=== PATIENT | male | born 1995 | race Caucasian/White ===

== ENCOUNTER 2019-07-07 01:15 | Emergency (ER) | payer SELFPAY ==
[~2019-07-07] VITALS: Ht 175.3 cm; Wt 124.7 kg
[2019-07-07] MEDS ORDERED: TETRACAINE 0.5% OPHTH SOLN 4 ML BTL (SINGLE DOSE ONLY) ONE (01:17)
[2019-07-07] MEDS ORDERED: oxyCODONE/APAP 5/325MG (PERCOCET 5) TABLET ONE (01:30)
[2019-07-07] MEDS ORDERED: oxyCODONE/APAP 10/325MG (PERCOCET 10) TABLET PO ONE (01:30)
[2019-07-07] MEDS ORDERED: TETRACAINE 0.5% OPHTH SOLN 4 ML BTL (SINGLE DOSE ONLY) OP ONE (01:30)
[2019-07-07] MEDS ORDERED: OXYC1TAB12 PO (01:34)
[2019-07-07] MEDS ORDERED: SULF5DRO OP (01:34)
--- NOTE | 2019-07-07 01:43 | ED EENT ---
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 Patient denies foreign body sensation in her after welding. Reports bilateral eye pain, redness wandering persistent pain starting shortly after completing welding. I pain is gradually worse throughout the evening. Reports blurred vision secondary to tearing and pain. Patient does not her contact lenses are in classes. Patient drove himself to the ED. No other acute symptoms or complaints Timing/Duration: gradual Severity: severe Location: eye (R), eye (L) Prearrival Treatment: no prearrival treatment Modifying Factors: Improves With Other Associated Symptoms: denies symptoms Allergies and Home Medications Allergies Coded Allergies: No Known Drug Allergies (Unverified , 07/07/19) Home Medications Oxycodone HCl/Acetaminophen 1 Each Tablet, 1 TAB PO Q8H PRN for PAIN-MODERATE Prescribed by: BUDDY HALE on 07/07/19133 Sulfacetamide Sodium 5 Ml Drops, 5 ML OP Q4H Prescribed by: BUDDY HALE on 07/07/19133 Patient Home Medication List Home Medication List Reviewed: Yes Review of Systems Review of Systems Constitutional: no symptoms reported Eyes: Blurred Vision, Decreased Acuity; Denies Foreign Body Sensation; Inflammation, Pain, Photophobia, Vision Changes Ears: No Symptoms Reported Nose: no symptoms reported Mouth: no symptoms reported Past Slpkkmr-Bwfnhd-Bvrkzq Hx Patient Social History Alcohol Use: Denies Use Recreational Drug Use: No Smoking Status: Never a Smoker 2nd Hand Smoke Exposure: No Recent Foreign Travel: No Contact w/Someone Who Travel: No Recent Infectious Disease Expo: No Recent Hopitalizations: No Past Medical History Surgeries: No Respiratory: No Cardiac: No Neurological: No Genitourinary: No Gastrointestinal: No Musculoskeletal: No Endocrine: No HEENT: No Cancer: No Psychosocial: No Integumentary: No Blood Disorders: No Visual Acuity : Eye Location: Bilaterally Vision Acuity Degree: visual acuity noted Physical Exam Height, Weight, BMI Height: 5'9.00" Weight: 275lbs. oz. 124.770290ct; BMI Method:Stated General Appearance: moderate distress Eyes: bilateral eye PERRL, bilateral eye EOMI, bilateral eye conjunctival inflammation Nose: normal inspection Progress/Results/Core Measures Results/Orders My Orders Orders - BUDDY HALE DO Tetracaine 0.5% Ophth Lorna Sdv (Tetracai (07/07/19 01:17) Tetracaine 0.5% Ophth Lorna Sdv (Tetracai (07/07/19 01:30) Oxycodone/Acet 10/325mg Tablet (Percocet (07/07/19 01:30) Blood Pressure Mean: 111 Departure Communication (Admissions) Exam consistent with photokeratitis from welding. Pain resolved with eyedrops visual acuity intact. Pain medication and topical antibiotics prescribed. Patient instructed to follow up with eye doctor if pain persists greater than 24 hours. Courtesy work note provided Impression Primary Impression: Keratoconjunctivitis of both eyes Disposition: 01 HOME, SELF-CARE Condition: Improved Departure-Patient Inst. Decision time for Depature: 01:43 Patient Instructions: Photokeratitis ([facility]) Scripts Oxycodone HCl/Acetaminophen (Percocet 10-325 mg Tablet) 1 Each Tablet 1 TAB PO Q8H PRN for PAIN-MODERATE MDD 3 TABS for 7 Days, #12 TAB Prov: BUDDY HALE DO 07/07/19 Sulfacetamide Sodium (Bleph-10) 5 Ml Drops 5 ML OP Q4H, #3 DROPS Prov: BUDDY HALE DO 07/07/19 BUDDY HALE DO Jul 07, 2019 01:43
[2019-07-07] MEDS ORDERED: oxyCODONE/APAP 5/325MG (PERCOCET 5) TABLET PO ONE (01:45)
[2019-07-07 01:47] VITALS: BP 155/90
== END 2019-07-07 01:47 | disposition home or self-care (01) ==
LOC: EDUNIT# 01:15 → ER FS 01:17
DX: H16.203 Unspecified keratoconjunctivitis, bilateral (principal)
CPT/HCPCS: 99283

== ENCOUNTER 2021-09-05 07:31 | Emergency (ER) | payer SELFPAY ==
[~2021-09-05] VITALS: Ht 177.8 cm; Wt 108.0 kg
[~2021-09-05 07:31] MED LIST: OXYC1TAB12 PO; SULF5DRO OP
--- OUTSIDE RECORDS SUMMARY | 2021-09-05 07:35 | XMS REPORT | Clinical Summary ---
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 If you d o not see the information that you expected, contact Release of Information in [facility] Information Management department at [phone] for further assistan ce in locating additional records.[facility] Allergies No Known Active Allergies Medications End Date Status Medication Sig Dispensed Refills Start Date Active predniSONE (DELTASONE) 10 Take 60mg 21 Tab 0 mg tablet daily x 1 5 days, then 50mg daily x 1 days, then 40mg daily x 1 days, then 30mg daily x 1 days, then 20mg daily x 1 days, then 10mg daily x 1 days, then stop Active oxyCODONE (ROXICODONE) 5 Take 1-2 Tabs 30 Tab 0 mg tablet by mouth 5 every 4 hours as needed for Pain Earliest Fill Date: 07/28/15 Active Lactobacillus rhamnosus Take 1 Cap by 90 Cap 3 GG (CULTURELLE) 15 mouth twice 5 billion cell cpSP daily with meals. 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 Family History Medical History Relation Name Comments Other Father Relation Name Status Comments Father Alive Mother Alive Social History Date Tobacco Use Types Packs/Day Years Used Never Smoker Smokeless Tobacco: Chew Current User Tobacco Cessation: Ready to Quit: No Comments Alcohol Use Standard Drinks/Week No 0 (1 standard drink = 0.6 o z pure alcohol) Sex Assigned at Date Recorded Not on file Last Filed Vital Signs Reading Time Taken Comments Vital Sign 108/60 07/28/2015 6:11 AM CDT Blood Pressure 64 07/28/2015 6:11 AM CDT Pulse 36.5 C (97.7 F) 07/28/2015 6:11 AM CDT Temperature - - Respiratory Rate 99% 07/28/2015 6:11 AM CDT Oxygen Saturation - - Inhaled Oxygen Concentration 125.6 kg (276 lb 14.4 oz) 07/26/2015 2:20 PM CDT Weight 177.8 cm (5' 10") 07/26/2015 2:20 PM CDT Height 39.73 07/26/2015 2:20 PM CDT Body Mass Index Plan of Treatment Health Maintenance Due Date Last Done Comments HIV SCREENING 2008 DTAP/TDAP VACCINES (1 - 2011 Tdap) HEPATITIS C SCREENING 2011 PHYSICAL (COMPREHENSIVE) 2011 EXAM INFLUENZA VACCINE 06/17/2021 Results Not on filefrom Last 3 Months 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
[2021-09-05 07:42] VITALS: BP 140/88
[2021-09-05 08:03] LABS: BILIRUBIN,URINE NEGATIVE (NEGATIVE); CLARITY,URINE CLEAR; COLOR,URINE YELLOW; GLUCOSE, URINE (UA) NEGATIVE (NEGATIVE); KETONES,URINE NEGATIVE (NEGATIVE); LEUKOCYTE ESTERASE ,URINE NEGATIVE (NEGATIVE); NITRITE,URINE NEGATIVE (NEGATIVE); PROTEIN,URINE NEGATIVE (NEGATIVE)
[2021-09-05 08:03] LABS: HEMOGLOBIN 15.6 g/dL (13.3-17.7); MEAN CORPUSCULAR HEMOGLOBIN 28 pg (25-34); WHITE BLOOD COUNT 7.7 10^3/uL (4.3-11.0)
[2021-09-05 08:04] LABS: HEMATOCRIT 47 % (40-54); MEAN CORPUSCULAR HGB CONC 33 g/dL (32-36); MEAN CORPUSCULAR VOLUME 85 fL (80-99); MEAN PLATELET VOLUME 9.5 fL (9.0-12.2); PLATELET COUNT 328 10^3/uL (130-400)
[2021-09-05 08:06] LABS: BASOPHILS % (AUTO) 1 % (0-10); EOSINOPHILS % (AUTO) 1 % (0-10); LYMPHOCYTES # (AUTO) 2.4 X 10^3 (1.0-4.0); LYMPHOCYTES % (AUTO) 31 % (12-44); MONOCYTES % (AUTO) 6 % (0-12); NEUTROPHILS # (AUTO) 4.8 X 10^3 (1.8-7.8); NEUTROPHILS % (AUTO) 62 % (42-75)
[2021-09-05 08:07] LABS: BASOPHILS # (AUTO) 0.1 10^3/uL (0.0-0.1); EOSINOPHILS # (AUTO) 0.1 10^3/uL (0.0-0.3); MONOCYTES # (AUTO) 0.4 X 10^3 (0.0-1.0)
[2021-09-05 08:15] LABS: AMPHETAMINE SCREEN, URINE NEGATIVE (NEGATIVE); BARBITURATE SCREEN URINE NEGATIVE (NEGATIVE); BENZODIAZEPINES SCREEN URINE NEGATIVE (NEGATIVE); CANNABINOID SCREEN, URINE NEGATIVE (NEGATIVE); COCAINE SCREEN URINE NEGATIVE (NEGATIVE); METHADONE STAT NEGATIVE (NEGATIVE); METHAMPHETAMINE SCREEN URINE S NEGATIVE (NEGATIVE); OPIATE SCREEN URINE NEGATIVE (NEGATIVE); OXYCODONE STAT NEGATIVE (NEGATIVE); PROPOXYPHENE STAT NEGATIVE (NEGATIVE); TRICYCLIC ANTIDEPRESSANTS SCRE NEGATIVE (NEGATIVE)
[2021-09-05 08:16] LABS: BACTERIA,URINE TRACE /HPF; SQUAMOUS EPITHELIAL CELL,UR RARE /HPF; WBC,URINE RARE /HPF
[2021-09-05 08:27] LABS: ALANINE AMINOTRANSFERASE 31 U/L (0-55); ALBUMIN 4.5 GM/DL (3.2-4.5); ALKALINE PHOSPHATASE 64 U/L (40-136); BILIRUBIN,TOTAL 0.7 MG/DL (0.1-1.0); BUN/CREATININE RATIO 11; CALCIUM 9.3 MG/DL (8.5-10.1); CARBON DIOXIDE 26 MMOL/L (21-32); CHLORIDE 101 MMOL/L (98-107); CREATININE SERUM 1.04 MG/DL (0.60-1.30); GFR ESTIMATED 85; GLUCOSE 104 MG/DL (70-105); POTASSIUM 4.3 MMOL/L (3.6-5.0); SODIUM 137 MMOL/L (135-145); TOTAL PROTEIN 7.7 GM/DL (6.4-8.2)
[2021-09-05 08:28] LABS: ACETAMINOPHEN < 10 UG/ML (10-30); SALICYLATE < 0.3 MG/DL (5.0-20.0)
--- NOTE | 2021-09-05 09:56 | ED General ---
General Chief Complaint: Psych/Social Disorder Stated Complaint: ATTEMPTED SUICIDE; NECK/HEAD INJ Nursing Triage Note: Patient presents to the ED with a chief complaint of suicide attempt. He states he has been having relational struggles with his and tried to hang himself in a garage with a tow rope yesterday arouond 2:30-3:00 pm. He states he woke up on the garage floor, unsure how he got loose from the tow rope. Ligature bang present to patient's neck. Patient states he is no longer suicidal and that he has a boss and friend that are very supportive and will help keep him safe. He also states he has two small children and wants to be around for them. He also has a cut saadia on his left wrist, states he let his cut him so she wouldn't cut herself. He states his has a history of depression and cutting but that he himself has never struggled with depression or suicidal thoughts. Source of Information: Patient Exam Limitations: No Limitations History of Present Illness Date Seen by Provider: Sep 05, 2021 Time Seen by Provider: 07:30 Initial Comments Patient is a 26-year-old male who presents with neck abrasions after attempting to hang himself yesterday afternoon with a tow rope. Patient currently going through separation with his spouse involving 4 and 2-year-old children. States he made a snap decision. No dysphonia, dysphagia, cough, shortness of breath or neck pain. He denies alcohol drug use at the time. He denies routine alcohol and drug use. He chews tobacco. Currently denies HI SI, hallucinations. Delusions. No history of depression, anxiety or SI. No other symptoms or complaints. Patient has abrasions to the left wrist. Timing/Duration: 1-3 Hours Severity: Mild Modifying Factors: improves with Other Associated Systoms: Other Allergies and Home Medications Allergies Coded Allergies: No Known Drug Allergies (Unverified , 07/07/19) Patient Home Medication List Home Medication List Reviewed: Yes Oxycodone HCl/Acetaminophen (Percocet 10-325 mg Tablet) 1 Each Tablet, 1 TAB PO Q8H PRN for PAIN-MODERATE Prescribed by: BUDDY HALE on 07/07/19 0134 Sulfacetamide Sodium (Bleph-10) 5 Ml Drops, 5 ML OP Q4H Prescribed by: BUDDY HALE on 07/07/19 0134 Review of Systems Review of Systems Constitutional: no symptoms reported EENTM: see HPI Respiratory: see HPI Musculoskeletal: no symptoms reported Past Owcfqdw-Humako-Odbrxh Hx Patient Social History Tobacco Use?: Yes Smokeless Tobacco Frequency: Current Everyday User Substance use?: No Alcohol Use?: No Pt feels they are or have been: No Past Medical History Surgeries: No Respiratory: No Cardiac: No Neurological: No Genitourinary: No Gastrointestinal: No Musculoskeletal: No Endocrine: No HEENT: No Cancer: No Psychosocial: No Integumentary: No Blood Disorders: No Physical Exam Vital Signs Vital Signs - First Documented 09/05/21 07:42 Temp 36.1 Pulse 100 Resp 20 B/P (MAP) 140/88 (105) Pulse Ox 100 O2 Delivery Room Air Capillary Refill : Less Than 3 Seconds Height, Weight, BMI Height: 5'9.00" Weight: 275lbs. oz. 124.174494gr; 34.00 BMI Method:Stated General Appearance: Anxious Eyes: Bilateral Eye Normal Inspection, Bilateral Eye EOMI Neck: Supple, Other (Superficial circumferential rope abrasions anterior neck.) Respiratory: Lungs Clear Cardiovascular: Regular Rate, Rhythm, No Edema Neurologic/Psychiatric: Alert, Other (Superficial abrasions left wrist,) Focused Exam Sepsis Stage: Ruled Out Progress/Results/Core Measures Suspected Sepsis SIRS Temperature: Pulse: 100 Respiratory Rate: 20 Laboratory Tests 09/05/21 07:50: White Blood Count 7.7 Blood Pressure 140 /88 Mean: 105 Laboratory Tests 09/05/21 07:50: Creatinine 1.04, Platelet Count 328, Total Bilirubin 0.7 Results/Orders Lab Results Laboratory Tests Test 09/05/21 07:37 09/05/21 07:50 Range/Units Urine Color YELLOW Urine Clarity CLEAR Urine pH 7.0 5-9 Urine Specific [place] 1.015 L 1.016-1.022 Urine Protein NEGATIVE NEGATIVE Urine Glucose (UA) NEGATIVE NEGATIVE Urine Ketones NEGATIVE NEGATIVE Urine Nitrite NEGATIVE NEGATIVE Urine Bilirubin NEGATIVE NEGATIVE Urine Urobilinogen 0.2 < = 1.0 MG/DL Urine Leukocyte Esterase NEGATIVE NEGATIVE Urine RBC (Auto) NEGATIVE NEGATIVE Urine RBC NONE /HPF Urine WBC RARE /HPF Urine Squamous Epithelial Cells RARE /HPF Urine Crystals NONE /LPF Urine Bacteria TRACE /HPF Urine Casts NONE /LPF Urine Mucus NEGATIVE /LPF Urine Culture Indicated NO Urine Opiates Screen NEGATIVE NEGATIVE Urine Oxycodone Screen NEGATIVE NEGATIVE Urine Methadone Screen NEGATIVE NEGATIVE Urine Propoxyphene Screen NEGATIVE NEGATIVE Urine Barbiturates Screen NEGATIVE NEGATIVE Ur Tricyclic Antidepressants Screen NEGATIVE NEGATIVE Urine Phencyclidine Screen NEGATIVE NEGATIVE Urine Amphetamines Screen NEGATIVE NEGATIVE Urine Methamphetamines Screen NEGATIVE NEGATIVE Urine Benzodiazepines Screen NEGATIVE NEGATIVE Urine Cocaine Screen NEGATIVE NEGATIVE Urine Cannabinoids Screen NEGATIVE NEGATIVE White Blood Count 7.7 4.3-11.0 10^3/uL Red Blood Count 5.55 H 4.30-5.52 10^6/uL Hemoglobin 15.6 13.3-17.7 g/dL Hematocrit 47 40-54 % Mean Corpuscular Volume 85 80-99 fL Mean Corpuscular Hemoglobin 28 25-34 pg Mean Corpuscular Hemoglobin Concent 33 32-36 g/dL Red Cell Distribution Width 13.2 10.0-14.5 % Platelet Count 328 130-400 10^3/uL Mean Platelet Volume 9.5 9.0-12.2 fL Immature Granulocyte % (Auto) 0 % Neutrophils (%) (Auto) 62 42-75 % Lymphocytes (%) (Auto) 31 12-44 % Monocytes (%) (Auto) 6 0-12 % Eosinophils (%) (Auto) 1 0-10 % Basophils (%) (Auto) 1 0-10 % Neutrophils # (Auto) 4.8 1.8-7.8 X 10^3 Lymphocytes # (Auto) 2.4 1.0-4.0 X 10^3 Monocytes # (Auto) 0.4 0.0-1.0 X 10^3 Eosinophils # (Auto) 0.1 0.0-0.3 10^3/uL Basophils # (Auto) 0.1 0.0-0.1 10^3/uL Immature Granulocyte # (Auto) 0.0 0.0-0.1 10^3/uL Sodium Level 137 135-145 MMOL/L Potassium Level 4.3 3.6-5.0 MMOL/L Chloride Level 101 98-107 MMOL/L Carbon Dioxide Level 26 21-32 MMOL/L Anion Gap 10 5-14 MMOL/L Blood Urea Nitrogen 11 7-18 MG/DL Creatinine 1.04 0.60-1.30 MG/DL Estimat Glomerular Filtration Rate 85 BUN/Creatinine Ratio 11 Glucose Level 104 70-105 MG/DL Calcium Level 9.3 8.5-10.1 MG/DL Corrected Calcium 8.9 8.5-10.1 MG/DL Total Bilirubin 0.7 0.1-1.0 MG/DL Aspartate Amino Transf (AST/SGOT) 24 5-34 U/L Alanine Aminotransferase (ALT/SGPT) 31 0-55 U/L Alkaline Phosphatase 64 40-136 U/L Total Protein 7.7 6.4-8.2 GM/DL Albumin 4.5 3.2-4.5 GM/DL Salicylates Level < 0.3 L 5.0-20.0 MG/DL Acetaminophen Level < 10 L 10-30 UG/ML Serum Alcohol < 10 <10 MG/DL My Orders Orders - BUDDY HALE DO Ua Culture If Indicated (09/05/21 07:52) Cbc With Automated Diff (09/05/21 07:52) Comprehensive Metabolic Panel (09/05/21 07:52) Alcohol (09/05/21 07:52) Drug Screen Stat (Urine) (09/05/21 07:52) Acetaminophen (09/05/21 07:52) Salicylate (09/05/21 07:52) Ekg Tracing (09/05/21 07:52) Bh Status Checks/Observation Q15M (09/05/21 07:52) Vital Signs/I&O 09/05/21 07:42 Temp 36.1 Pulse 100 Resp 20 B/P (MAP) 140/88 (105) Pulse Ox 100 O2 Delivery Room Air Capillary Refill : Less Than 3 Seconds Blood Pressure Mean: 105 Departure Communication (Admissions) Patient denies HI SI. He is medically stable. Lab work is reassuring. Psychiatric assessment screening exam performed. Recommendations are for outpatient safety plan. Patient is comfortable with discharge and is agreeable to follow-up. He does have people to stay with him and check on him. Return precautions reviewed. Patient verbalizes understanding agreement discharge instructions prior to departure. Impression Primary Impression: Neck abrasion, non-infected Additional Impressions: Abrasion of left wrist Mood disorder Disposition: HOME, SELF-CARE Condition: Stable Departure-Patient Inst. Decision time for Depature: 10:01 Referrals: NO,LOCAL PHYSICIAN (PCP/Family) Primary Care Physician Patient Instructions: Skin Abrasions, Depression Add. Discharge Instructions: Please follow home safety plan provided with [facility] ava ointment as scheduled. Avoid drugs, alcohol and use of firearms. Return to the ED if new or worsening symptoms. All discharge instructions reviewed with patient and/or family. Voiced understanding. BUDDY HALE DO Sep 05, 2021 09:56
== END 2021-09-05 10:45 | disposition home or self-care (01) ==
LOC: EDUNIT# 07:31 → ER FS 07:32
DX: S10.91XA Abrasion of unspecified part of neck, initial encounter (principal); S60.812A Abrasion of left wrist, initial encounter; F39 Unspecified mood [affective] disorder; F17.200 Nicotine dependence, unspecified, uncomplicated; X83.8XXA Intentional self-harm by other specified means, initial encounter
CPT/HCPCS: 36415; 80053; 80306; 81000; 85025; 99283; G0480 ×3; 80320; 80329

== ENCOUNTER 2021-12-01 23:14 | Emergency (ER) | payer SELFPAY ==
[2021-12-01] MEDS ORDERED: diphenhydrAMINE 50 MG/ML INJ (BENADRYL) IM STA (23:28)
[2021-12-01] MEDS ORDERED: KETOROLAC 60 MG/2 ML VIAL IM STA (23:28)
--- NOTE | 2021-12-01 23:38 | ED General ---
General Chief Complaint: Head/Cervical Problems Stated Complaint: FEVER;BLOOD FROM EARS MOUTH THROAT Nursing Triage Note: Pt complaining of a headache that started earlier today. Source of Information: Patient History of Present Illness Date Seen by Provider: Dec 01, 2021 Time Seen by Provider: 23:18 Initial Comments 26-year-old male presenting with complaints of having a generalized headache that started around 3 or 4 this afternoon. He also was having subjective fever and chills. He complained of cough and congestion. He was denying any nausea, vomiting, abdominal pain, diarrhea, head trauma. He has had positive exposure to COVID with his being positive as well as his boss at work. He was complaining of severe generalized headache that was worse with coughing. He has some light sensitivity along with this. He has not tried taking anything at home for his symptoms. Timing/Duration: 4-6 Hours Severity: Severe Associated Systoms: No Chest Pain; Cough; No Diaphoresis; Fever/Chills, Headaches; No Loss of Appetite, No Malaise, No Nausea/Vomiting, No Rash, No Seizure, No Shortness of Air, No Syncope, No Weakness Allergies and Home Medications Allergies Coded Allergies: No Known Drug Allergies (Unverified , 07/07/19) Patient Home Medication List Home Medication List Reviewed: Yes Oxycodone HCl/Acetaminophen (Percocet 10-325 mg Tablet) 1 Each Tablet, 1 TAB PO Q8H PRN for PAIN-MODERATE Prescribed by: BUDDY HALE on 07/07/19 013 Sulfacetamide Sodium (Bleph-10) 5 Ml Drops, 5 ML OP Q4H Prescribed by: BUDDY HALE on 07/07/19 013 Review of Systems Review of Systems Constitutional: see HPI EENTM: epistaxis (chronic intermittent issue); No nose congestion Respiratory: cough; No hemoptysis, No phlegm, No stridor, No wheezing Cardiovascular: no symptoms reported Gastrointestinal: no symptoms reported Genitourinary: no symptoms reported Musculoskeletal: muscle pain (generalized body aches) Skin: No rash Psychiatric/Neurological: Headache; Denies Numbness, Denies Paresthesia, Denies Seizure, Denies Tingling, Denies Tremors, Denies Weakness Hematologic/Lymphatic: Easy Bleeding, Easy Bruising Past Pjbjakq-Tzxcsq-Nzuanu Hx Patient Social History Tobacco Use?: No Use of E-Cig and/or Vaping dev: No Substance use?: No Alcohol Use?: No Pt feels they are or have been: No Past Medical History Surgeries: No Respiratory: No Cardiac: No Neurological: No Genitourinary: No Gastrointestinal: No Musculoskeletal: No Endocrine: No HEENT: No Cancer: No Psychosocial: No Integumentary: No Blood Disorders: No Physical Exam Vital Signs Vital Signs - First Documented 12/01/21 23:18 Temp 37.0 Pulse 100 Resp 18 B/P (MAP) 139/78 (98) Pulse Ox 96 O2 Delivery Room Air Capillary Refill : Less Than 3 Seconds Height, Weight, BMI Height: 5'9.00" Weight: 275lbs. oz. 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 Norm as Tested Skin: Normal Color, Warm/Dry Progress/Results/Core Measures Suspected Sepsis SIRS Temperature: Pulse: 100 Respiratory Rate: 18 Blood Pressure 139 /78 Mean: 98 Results/Orders Lab Results Laboratory Tests Test 12/01/21 23:25 Range/Units Influenza Type A Antigen NEGATIVE NEGATIVE Influenza Type B Antigen NEGATIVE NEGATIVE My Orders Orders - MANJEET LUQUE MD Covid 19 Inhouse Test (12/01/21 23:28) Influenza A & B Antigens (12/01/21 23:28) Isolation Central Supply Req (12/01/21 23:28) Ketorolac Injection (Toradol Injection) (12/01/21 23:28) Diphenhydramine Injection (Benadryl Inje (12/01/21 23:28) Vital Signs/I&O 12/01/21 12/01/21 23:18 23:55 Temp 37.0 37.0 Pulse 100 83 Resp 18 18 B/P (MAP) 139/78 (98) 139/78 Pulse Ox 96 96 O2 Delivery Room Air Room Air Capillary Refill : Less Than 3 Seconds Blood Pressure Mean: 98 Progress Note #1: Progress Note We'll send flu and COVID swab on the patient. Recommend that he quarantine for 10 days and presume that he is positive since he has been around his who is positive. Give Toradol and Benadryl to help with his headache. Encouraged him to sleep and rest at home. Treat symptoms at home Progress Note #2: Progress Note Patient reports headache was improved. Discharged home to quarantine and await COVID results. Departure Impression Primary Impression: Headache Qualified Codes: R51.9 - Headache, unspecified Additional Impressions: Person under investigation for severe acute respiratory syndrome coronavirus 2 (SARS-CoV-2) infection Cough in adult patient Fever and chills Disposition: HOME, SELF-CARE Condition: Stable Departure-Patient Inst. Decision time for Depature: 23:35 Referrals: NO,LOCAL PHYSICIAN (PCP) Primary Care Physician [facility] Patient Instructions: Fever, Adult ED, Cough, Adult ED, COVID-19 ED, Headache, Adult ED Add. Discharge Instructions: The swab tonight to check for Covid and Influenza will take 12-24 hours usually to get the results. With your exposure to your and other people with Covid you likely have this as well. You should quarantine for next 10 days and treat your symptoms of fever with acetaminophen. For cough you could take Mucinex to help loosen and thin out your congestion and cough. Try to drink extra fluids and stay well hydrated to help with fever and body aches and headache. Follow up with clinic for other concerns. If you need a primary provider you could call the [facility] clinic at [phone] All discharge instructions reviewed with patient and/or family. Voiced understanding. MANJEET LUQUE MD Dec 01, 2021 23:38
[2021-12-01 23:55] VITALS: BP 139/78
== END 2021-12-01 23:58 | disposition home or self-care (01) ==
LOC: EDUNIT# 23:14 → ER FS 23:16
DX: U07.1 COVID-19 (principal)
CPT/HCPCS: 87636; 87804; 96372; 99284

== ENCOUNTER 2022-02-11 00:08 | Emergency (ER) | payer SELFPAY ==
[~2022-02-11] VITALS: Ht 175.2 cm; Wt 116.2 kg
--- NOTE | 2022-02-11 00:28 | ED General ---
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 He has been having a lot of acid reflux and belching lately. Denies fever, allergic reaction, sick contacts, SOB, palpitations, abdominal pain, nausea, vomiting. Pt states he feels like he has been having an URI for months. Pt had COVID last year. Pt smoked marijuana before going to sleep. Allergies and Home Medications Allergies Coded Allergies: No Known Drug Allergies (Unverified , 07/07/19) Patient Home Medication List Home Medication List Reviewed: Yes Oxycodone HCl/Acetaminophen (Percocet 10-325 mg Tablet) 1 Each Tablet, 1 TAB PO Q8H PRN for PAIN-MODERATE Prescribed by: BUDDY HALE on 07/07/19 0134 Sulfacetamide Sodium (Bleph-10) 5 Ml Drops, 5 ML OP Q4H Prescribed by: BUDDY HALE on 07/07/19 0134 Review of Systems Review of Systems Constitutional: no symptoms reported EENTM: throat pain, throat swelling, other (choking sensation) Respiratory: wheezing Cardiovascular: no symptoms reported Gastrointestinal: no symptoms reported Genitourinary: no symptoms reported Musculoskeletal: no symptoms reported Skin: no symptoms reported Psychiatric/Neurological: No Symptoms Reported Hematologic/Lymphatic: No Symptoms Reported Immunological/Allergic: no symptoms reported Past Srgzptw-Ughqyg-Arjdwo Hx Past Medical History Surgeries: No Respiratory: No Cardiac: No Neurological: No Genitourinary: No Gastrointestinal: No Musculoskeletal: No Endocrine: No HEENT: No Cancer: No Psychosocial: No Integumentary: No Blood Disorders: No Physical Exam Vital Signs Vital Signs - First Documented 02/11/22 00:15 Temp 37.0 Pulse 88 Resp 20 B/P (MAP) 156/80 (105) Pulse Ox 97 O2 Delivery Room Air Capillary Refill : Height, Weight, BMI Height: 5'9.00" Weight: 275lbs. oz. 124.069857th; 34.00 BMI Method:Stated General Appearance: No Apparent Distress, Anxious HEENT: PERRL/EOMI, TMs Normal, Normal ENT Inspection, Pharynx Normal Neck: Full Range of Motion, Supple Respiratory: Chest Non Tender, Lungs Clear, Normal Breath Sounds, No Accessory Muscle Use, Rhonci, Wheezing Cardiovascular: Regular Rate, Rhythm Gastrointestinal: Normal Bowel Sounds, Non Tender, Soft Neurologic/Psychiatric: Alert, Oriented x3, No Motor/Sensory Deficits Skin: Normal Color Lymphatic: No Adenopathy Progress/Results/Core Measures Suspected Sepsis SIRS Temperature: Pulse: Respiratory Rate: Laboratory Tests 02/11/22 00:20: White Blood Count 12.8H Blood Pressure / Mean: Laboratory Tests 02/11/22 00:20: Creatinine 1.15, INR Comment 0.9, Platelet Count 309, Total Bilirubin 0.6 Results/Orders Lab Results Laboratory Tests Test 02/11/22 00:20 Range/Units White Blood Count 12.8 H 4.3-11.0 10^3/uL Red Blood Count 5.17 4.30-5.52 10^6/uL Hemoglobin 14.4 13.3-17.7 g/dL Hematocrit 44 40-54 % Mean Corpuscular Volume 28 L 80-99 fL Mean Corpuscular Hemoglobin 28 25-34 pg Mean Corpuscular Hemoglobin Concent 33 32-36 g/dL Red Cell Distribution Width 14.5 10.0-14.5 % Platelet Count 309 130-400 10^3/uL Mean Platelet Volume 9.3 9.0-12.2 fL Immature Granulocyte % (Auto) 0 % Neutrophils (%) (Auto) 59 42-75 % Lymphocytes (%) (Auto) 32 12-44 % Monocytes (%) (Auto) 7 0-12 % Eosinophils (%) (Auto) 1 0-10 % Basophils (%) (Auto) 1 0-10 % Neutrophils # (Auto) 7.5 1.8-7.8 X 10^3 Lymphocytes # (Auto) 4.2 H 1.0-4.0 X 10^3 Monocytes # (Auto) 0.9 0.0-1.0 X 10^3 Eosinophils # (Auto) 0.2 0.0-0.3 10^3/uL Basophils # (Auto) 0.1 0.0-0.1 10^3/uL Immature Granulocyte # (Auto) 0.0 0.0-0.1 10^3/uL Prothrombin Time 13.0 12.2-14.7 SEC INR Comment 0.9 0.8-1.4 D-Dimer 1.06 H 0.00-0.49 UG/ML Sodium Level 139 135-145 MMOL/L Potassium Level 3.9 3.6-5.0 MMOL/L Chloride Level 102 98-107 MMOL/L Carbon Dioxide Level 24 21-32 MMOL/L Anion Gap 13 5-14 MMOL/L Blood Urea Nitrogen 21 H 7-18 MG/DL Creatinine 1.15 0.60-1.30 MG/DL Estimat Glomerular Filtration Rate 89 BUN/Creatinine Ratio 18 Glucose Level 99 70-105 MG/DL Calcium Level 9.3 8.5-10.1 MG/DL Corrected Calcium 8.9 8.5-10.1 MG/DL Total Bilirubin 0.6 0.1-1.0 MG/DL Aspartate Amino Transf (AST/SGOT) 28 5-34 U/L Alanine Aminotransferase (ALT/SGPT) 28 0-55 U/L Alkaline Phosphatase 64 40-136 U/L Total Protein 7.4 6.4-8.2 GM/DL Albumin 4.5 3.2-4.5 GM/DL My Orders Orders - SHARMILA RAMOS MD Cbc With Automated Diff (02/11/22 00:18) Comprehensive Metabolic Panel (02/11/22 00:18) Albuterol/Ipra Inhalation Soln (Duoneb I (02/11/22 00:30) Fibrin Degradation Products (02/11/22 00:18) Chest Pa/Lat (2 View) (02/11/22 00:18) O2 (02/11/22 00:18) Ed Iv/Invasive Line Start (02/11/22 00:18) Svn Small Volume Nebulizer (02/11/22 00:18) Methylprednisolone Sod Succ (Solu-Medrol (02/11/22 00:30) Soft Tissue Neck (02/11/22 00:21) Drug Screen Stat (Urine) (02/11/22 00:30) Protime With Inr (02/11/22 01:20) Ct Angio Chest W (02/11/22 01:20) Iohexol Injection (Omnipaque 350 Mg/Ml 1 (02/11/22 01:30) Received Contrast (Hold Metformin- Contr (02/11/22 01:30) Ns (Ivpb) (Sodium Chloride 0.9% Ivpb Bag (02/11/22 01:30) Medications Given in ED Current Medications Medications Dose Ordered Sig/Eugenia Route Start Time Stop Time Status Last Admin Dose Admin Albuterol/ Ipratropium 3 ml ONCE ONCE INH 02/11/22 00:30 02/11/22 00:31 DC 02/11/22 00:26 3 ML Iohexol 125 ml ONCE ONCE IV 02/11/22 01:30 02/11/22 01:31 DC 02/11/22 01:47 125 ML Methylprednisolone Sodium Succinate 125 mg ONCE ONCE IVP 02/11/22 00:30 02/11/22 00:31 DC 02/11/22 00:26 125 MG Sodium Chloride 100 ml ONCE ONCE IV 02/11/22 01:30 02/11/22 01:31 DC 02/11/22 01:47 100 ML Vital Signs/I&O 02/11/22 00:15 Temp 37.0 Pulse 88 Resp 20 B/P (MAP) 156/80 (105) Pulse Ox 97 O2 Delivery Room Air Capillary Refill : Progress Note : Progress Note 1. NEW ONSET ASTHMA - XR CHEST & SOFT TISSUE NECK: appears unremarkable - Solumedrol 125mg iv STAT - Duo neb STAT: Pt improved with this - ELEVATED D-dimer - CTA STAT : negative for PE - O2 sat is 98% on room air - Prescription for prednisone and Albuterol inhaler - F/u with PCP -The patient was seen in the ED, and treated appropriately to presentation at a specific point in time. Patient is informed that there is a possibility that disease and illness can evolve and change in acuity rapidly or slowly after patient is discharged from the ER. Precautionary advice given to the patient for immediate return to ER if symptoms worsen or do not resolve, and to seek emergency care sooner rather than later. Pt also advised on the importance of PCP follow up and compliance with management and follow up plan. Pt verbally expressed understanding. Diagnostic Imaging Diagonstic Imaging: Xray Plain Films/CT/US/NM/MRI: chest, other (neck soft tissue) Departure Impression Primary Impression: Asthma Qualified Codes: J45.21 - Mild intermittent asthma with (acute) exacerbation Disposition: HOME, SELF-CARE Condition: Improved Departure-Patient Inst. Referrals: NO,LOCAL PHYSICIAN (PCP/Family) Primary Care Physician Patient Instructions: Asthma, Adult (DC), Medicines for Asthma, Avoiding Asthma Triggers, Asthma Action Plan Add. Discharge Instructions: - F/u with PCP - Prescription for asthma inhaler -The patient was seen in the ED, and treated appropriately to presentation at a specific point in time. Patient is informed that there is a possibility that disease and illness can evolve and change in acuity rapidly or slowly after patient is discharged from the ER. Precautionary advice given to the patient for immediate return to ER if symptoms worsen or do not resolve, and to seek emergency care sooner rather than later. Pt also advised on the importance of PCP follow up and compliance with management and follow up plan. Pt verbally expressed understanding. Scripts Prednisone (Prednisone) 50 Mg Tab 50 MG PO DAILY for 4 Days, #4 TAB Prov: SHARMILA RAMOS MD 02/11/22 Albuterol Sulfate (VENTOLIN HFA) 1 Puff Puff 2 PUFF INH Q4H PRN for SHORTNESS OF BREATH for 30 Days, #1 EA 1 PUFF = 90 MCG Prov: SHARMILA RAMOS MD 02/11/22 SHARMILA RAMOS MD Feb 11, 2022 00:28
[2022-02-11] MEDS ORDERED: RT-ALBUTEROL/IPRATROPIUM 3 ML (DUONEB) VIAL INH ONE (00:30)
[2022-02-11] MEDS ORDERED: methylPREDNISolone 125 MG (Solu-MEDROL) VIAL IVP ONE (00:30)
[2022-02-11 00:53] LABS: BASOPHILS # (AUTO) 0.1 10^3/uL (0.0-0.1); BASOPHILS % (AUTO) 1 % (0-10); EOSINOPHILS # (AUTO) 0.2 10^3/uL (0.0-0.3); EOSINOPHILS % (AUTO) 1 % (0-10); HEMATOCRIT 44 % (40-54); HEMOGLOBIN 14.4 g/dL (13.3-17.7); LYMPHOCYTES # (AUTO) 4.2 X 10^3 (1.0-4.0); LYMPHOCYTES % (AUTO) 32 % (12-44); MEAN CORPUSCULAR HEMOGLOBIN 28 pg (25-34); MEAN CORPUSCULAR HGB CONC 33 g/dL (32-36); MEAN CORPUSCULAR VOLUME 28 fL (80-99); MEAN PLATELET VOLUME 9.3 fL (9.0-12.2); MONOCYTES # (AUTO) 0.9 X 10^3 (0.0-1.0); MONOCYTES % (AUTO) 7 % (0-12); NEUTROPHILS # (AUTO) 7.5 X 10^3 (1.8-7.8); NEUTROPHILS % (AUTO) 59 % (42-75); PLATELET COUNT 309 10^3/uL (130-400); WHITE BLOOD COUNT 12.8 10^3/uL (4.3-11.0)
[2022-02-11 01:05] LABS: POTASSIUM 3.9 MMOL/L (3.6-5.0)
[2022-02-11 01:06] LABS: ALBUMIN 4.5 GM/DL (3.2-4.5); BILIRUBIN,TOTAL 0.6 MG/DL (0.1-1.0); CALCIUM 9.3 MG/DL (8.5-10.1); CREATININE SERUM 1.15 MG/DL (0.60-1.30); TOTAL PROTEIN 7.4 GM/DL (6.4-8.2)
[2022-02-11] MEDS ORDERED: HOLD METFORMIN - RECEIVED CONTRAST 20 ML VIAL IV SCH (01:30)
[2022-02-11] MEDS ORDERED: NS 100 ML (IVPB) BAG IV ONE (01:30)
[2022-02-11] MEDS ORDERED: IOHEXOL 350 MG/ML 150 ML (OMNIPAQUE 350) VIAL IV ONE (01:30)
[2022-02-11 01:36] LABS: INR 0.9 (0.8-1.4)
[2022-02-11 03:53] VITALS: BP 136/88
[2022-02-11] MEDS ORDERED: PRD50T PO (03:55)
[2022-02-11] MEDS ORDERED: RT-ALBUINH INH (03:55)
--- NOTE | 2022-02-11 06:24 | Diagnostic Imaging Report ---
PROCEDURE: CT angiography of the chest with contrast. TECHNIQUE: Multiple contiguous axial images were obtained through the chest after uneventful bolus administration of intravenous contrast. 3D reconstructed CTA MIP acquisitions were also performed. Auto Exposure Controls were utilized during the CT exam to meet ALARA standards for radiation dose reduction. INDICATION: Clotting disorder. Smoked marijuana today and feels throat is swelling. Coughing up green mucus. EXAMINATION: CT angiogram chest 02/11/2022 FINDINGS: There are no central or proximal segmental pulmonary emboli. Thoracic aorta unremarkable. No pericardial or pleural effusions. Lungs clear. No pneumothorax. There is no acute osseous abnormality. The visualized upper abdominal structures unremarkable for acute abnormality. IMPRESSION: 1. No evidence for central or proximal segmental pulmonary emboli with some of the peripheral vessels not well evaluated due to poor bolus. A small distal peripheral embolus could be missed in this setting. If there is continued concern, follow-up imaging recommended. Remaining examination unremarkable. Findings agree with the preliminary report. Dictated by: Dictated on workstation # [id number]
--- NOTE | 2022-02-11 06:45 | Diagnostic Imaging Report ---
INDICATION: Smoked marijuana. Feels throat swelling and green mucus. EXAMINATION: 2 view chest 02/11/2022 FINDINGS: The cardiomediastinal silhouette is unremarkable. The pulmonary vasculature is within normal limits. The lungs and pleural spaces are clear. IMPRESSION: No evidence of an acute cardiopulmonary process. Dictated by: Dictated on workstation # [id number]
--- NOTE | 2022-02-11 07:12 | Diagnostic Imaging Report ---
INDICATION: Choking sensation. Swelling in the throat after smoking marijuana. EXAMINATION:: Soft tissue neck 02/11/2022 FINDINGS: There are several likely postoperative clips in the left upper neck. The remaining soft tissues unremarkable. Airway appears patent. Prevertebral soft tissues unremarkable. Visualized osseous structures intact. Visualized lung apices clear. IMPRESSION: 1. Incidental findings with no acute process appreciated. Dictated by: Dictated on workstation # [id number]
== END 2022-02-11 03:58 | disposition home or self-care (01) ==
LOC: EDUNIT# 00:08 → ER FS 00:11
DX: J45.909 Unspecified asthma, uncomplicated (principal); Z86.16 Personal history of COVID-19
CPT/HCPCS: 36415; 70360; 71046; 71275; 80053; 85025; 85379; 85610; Q9967

== ENCOUNTER 2023-01-27 17:02 | Emergency (ER) | payer SELFPAY ==
[~2023-01-27] VITALS: Ht 177.8 cm; Wt 111.4 kg
[~2023-01-27 17:02] MED LIST changes: +PRD50T PO; +RT-ALBUINH INH
[2023-01-27 17:06] VITALS: BP 158/91
[2023-01-27] MEDS ORDERED: TETRACAINE 0.5% OPHTH SOLN 4 ML BTL (SINGLE DOSE ONLY) ONE (17:14)
[2023-01-27] MEDS ORDERED: TETRACAINE 0.5% OPHTH SOLN 4 ML BTL (SINGLE DOSE ONLY) OP ONE (17:15)
[2023-01-27] MEDS ORDERED: FLUORESCEIN (FLUOR-I-STRIPS) 1 MG STRP ONE (17:18)
[2023-01-27] MEDS ORDERED: FLUORESCEIN (FLUOR-I-STRIPS) 1 MG STRP OP ONE (17:30)
[2023-01-27] MEDS ORDERED: NS IV 500 ML 500 ML IV SCH (17:30)
--- NOTE | 2023-01-27 17:33 | ED EENT ---
History of Present Illness General Chief Complaint: Eye Problems Stated Complaint: BRAKE FLUID IN EYE, BURNING EYE RT SIDE Nursing Triage Note: Patient c/o getting car break housecleaner in Rt. eye today between 1445 and 1500. Pt. c/o his Rt. eye burning. Patient states he did flush his Rt. eye out for 30 minutes with no relief in symptoms. Pt. states he also used a saline solution with no change in his symptoms. Source: patient Exam Limitations: no limitations History of Present Illness Date Seen by Provider: Jan 27, 2023 Time Seen by Provider: 17:16 Initial Comments 27-year-old male presents the emergency department today for right eye irritation. About 2 45-3 o'clock he got brake housecleaner in his right eye. Brand was [employer]. He does not wear contacts. He did not have eye protection on. No other injuries. He flushed it for about 15 minutes and he is continue to have irritation All other systems reviewed and negative except documented per HPI. Voice recognition software was used to help create this chart Allergies and Home Medications Allergies Coded Allergies: No Known Drug Allergies (Unverified , 07/07/19) Patient Home Medication List Home Medication List Reviewed: Yes Albuterol Sulfate (Ventolin Hfa) 1 Puff Puff, 2 PUFF INH Q4H PRN for SHORTNESS OF BREATH Prescribed by: SHARMILA RAMOS MD on 02/11/22354 Oxycodone HCl/Acetaminophen (Percocet 10-325 mg Tablet) 1 Each Tablet, 1 TAB PO Q8H PRN for PAIN-MODERATE Prescribed by: BUDDY HALE on 07/07/19133 Prednisone (Prednisone) 50 Mg Tab, 50 MG PO DAILY Prescribed by: SHARMILA RAMOS MD on 02/11/22354 Sulfacetamide Sodium (Bleph-10) 5 Ml Drops, 5 ML OP Q4H Prescribed by: BUDDY HALE on 07/07/19133 Review of Systems Review of Systems Constitutional: no symptoms reported Past Ahnpxvx-Vhwlmm-Iexfug Hx Patient Social History Tobacco Use?: Yes Smokeless Tobacco Frequency: Current Everyday User Use of E-Cig and/or Vaping dev: No Substance use?: Yes Substance type: Marijuana Substance frequency: Once in a while Alcohol Use?: No Pt feels they are or have been: No Immunizations Up To Date Influenza Vaccine Up-to-Date: No; Not Current Past Medical History Surgeries: No Respiratory: No Cardiac: No Neurological: No Genitourinary: No Gastrointestinal: No Musculoskeletal: No Endocrine: No HEENT: No Cancer: No Psychosocial: No Integumentary: No Blood Disorders: No Family Medical History Reviewed Nursing Family Hx No Pertinent Family Hx Physical Exam Vital Signs Vital Signs - First Documented 01/27/23 17:06 Temp 36.6 Pulse 109 Resp 16 B/P (MAP) 158/91 (113) Pulse Ox 100 O2 Delivery Room Air Height, Weight, BMI Height: 5'9.00" Weight: 275lbs. oz. 124.339494cw; 35.00 BMI Method:Stated General Appearance: WD/WN, no apparent distress Eyes: right eye PERRL, right eye EOMI, right eye other (Sclera is erythematous, irritated. Negative fluorescein stain.); left eye normal inspection Cardiovascular: normal peripheral pulses, regular rate, rhythm, no murmur Respiratory: chest non-tender, normal breath sounds, no respiratory distress Gastrointestinal: non tender, soft Neurologic/Psychiatric: alert, oriented x 3 Skin: normal color, warm/dry Progress/Results/Core Measures Results/Orders My Orders Orders - YANIRA CARRASCO DO Tetracaine 0.5% Ophth Lorna Sdv (Tetracai (01/27/23 17:15) Tetracaine 0.5% Ophth Lorna Sdv (Tetracai (01/27/23 17:14) Fluorescein Strips (Zcnbs-N-Gwpevw) (01/27/23 17:30) Fluorescein Strips (Dkjib-W-Zrlssy) (01/27/23 17:18) Ns Iv 500 Ml (Sodium Chloride 0.9%) (01/27/23 17:30) Medications Given in ED Current Medications Medications Dose Ordered Sig/Eugenia Route Start Time Stop Time Status Last Admin Dose Admin Fluorescein Sodium 1 mg ONCE ONCE OP 01/27/23 17:30 01/27/23 17:31 DC 01/27/23 17:19 1 MG Tetracaine HCl 2 ml ONCE ONCE OP 01/27/23 17:15 01/27/23 17:16 DC 01/27/23 17:16 2 ML Vital Signs/I&O 01/27/23 17:06 Temp 36.6 Pulse 109 Resp 16 B/P (MAP) 158/91 (113) Pulse Ox 100 O2 Delivery Room Air Blood Pressure Mean: 113 Departure Communication (Admissions) Patient has chemical irritation of the eye. Brake housecleaner. MSDS reviewed and recommends only copious irrigation. There is no evidence for abrasion on fluorescein staining. Pain is completely relieved with the tetracaine drops. No evidence for deeper injury. Copious irrigation with normal saline and Yayo lens performed for 20 minutes. Patient feels much better. He is discharged home with pain medication and close follow-up. Impression Primary Impression: Chemical exposure of eye Disposition: HOME, SELF-CARE Condition: Stable Departure-Patient Inst. Referrals: NO,LOCAL PHYSICIAN (PCP/Family) Primary Care Physician Patient Instructions: Chemical Eye Injury Add. Discharge Instructions: Use the pain medication as needed. Do not drive or make important decisions while taking this may make you drowsy. Call tomorrow to schedule an appointment with an eye doctor should your symptoms persist. I think your eye will be irritated and somewhat sore for the next 24 to 48 hours but should gradually get better. Return immediately if your vision changes All discharge instructions reviewed with patient and/or family. Voiced understanding. Scripts Hydrocodone/Acetaminophen (Hydrocodone-Acetamin 5-325 mg) 5 Mg-325 Mg Tablet 1 TAB PO Q4H PRN for PAIN-MODERATE (5-7) for 3 Days, #12 TAB Prov: YANIRA CARRASCO DO 01/27/23 YANIRA CARRASCO DO Jan 27, 2023 17:33
[2023-01-27] MEDS ORDERED: ACHD5005 PO (17:50)
== END 2023-01-27 17:53 | disposition home or self-care (01) ==
LOC: EDUNIT# 17:02 → ER FS 17:04
DX: Z77.098 Contact with and (suspected) exposure to other hazardous, chiefly nonmedicinal, chemicals (principal); H57.89 Other specified disorders of eye and adnexa; F17.200 Nicotine dependence, unspecified, uncomplicated; Z28.310 Unvaccinated for COVID-19
CPT/HCPCS: 99281